=== PATIENT | female | born 1950 | race Caucasian/White ===

== ENCOUNTER 2017-10-25 06:47 | Day surgery (SDC) | payer MEDICARE ==
[~2017-10-25 06:47] MED LIST: Buffered Lidocaine 0.9% SYRIN* 5 ML/SYR SYRINGE INTRADERM ONE; Famotidine IV* 10 MG/ML 2 ML (20 mg) IV ONE
[2017-10-25] MEDS ORDERED: Famotidine IV* 10 MG/ML 2 ML (20 mg) ONE (06:58)
[2017-10-25] MEDS ORDERED: ceFAZolin 2 GM PREMIX (*) 2 GM/50 ML BAG IVPB ONE (06:58)
[2017-10-25] MEDS ORDERED: Bupivacaine 0.25% SDV* 30 ML ONE ×2 (07:07→07:17)
[2017-10-25] MEDS ORDERED: Propofol* 10 MG/ML 20 ML BTL IV PUSH ONE (07:15)
[2017-10-25] MEDS ORDERED: Lidocaine 2% PF * 5 ML VIAL ONE (07:15)
[2017-10-25] MEDS ORDERED: Insulin LISPRO* 1 UNITS UNIT SUBCUT ONE (07:29)
[2017-10-25] MEDS ORDERED: fentaNYL* 50 MCG/ML 2 ML VIAL (100 MCG VIAL) IV PRN (07:32)
[2017-10-25] MEDS ORDERED: HYDROcodone/ACETAMIN 5-325 MG* 1 TAB PO PRN (07:32)
[2017-10-25] MEDS ORDERED: oxyCODONE/Acetamin 5/325 MG* TAB PO PRN (07:32)
[2017-10-25] MEDS ORDERED: PROCHLORPERAZINE INJ 5 MG/ML 2 ML VIAL IV PRN (07:32)
[2017-10-25] MEDS ORDERED: Naloxone* 0.4 MG/ML 1 ML VIAL IV PRN (07:32)
[2017-10-25] MEDS ORDERED: fentaNYL* 50 MCG/ML 2 ML VIAL (100 MCG VIAL) ONE ×2 (07:35→08:12)
[2017-10-25] MEDS ORDERED: EPHEDrine (Pressors)* 50 MG/ML VIAL ONE (08:02)
[2017-10-25] MEDS ORDERED: Ondansetron INJ* 2 MG/ML VIAL ONE (08:18)
[2017-10-25] MEDS ORDERED: PROCHLORPERAZINE INJ 5 MG/ML 2 ML VIAL ONE (10:03)
[2017-10-25 10:24] VITALS: BP 155/52
--- NOTE | 2017-10-30 19:25 | OP ---
DATE OF OPERATION: 10/25/17 - [facility] DATE OF : 48 SURGEON: Fareed Aranda MD LABORATORY MECHANIC HELPER: PATTI Gonzalez. An criminal legal assistant was needed for the entirety of the procedure to aid in positioning of the arm and retraction. ANESTHESIOLOGIST: Katherine Rogers MD ANESTHESIA: General. PRE-OP DIAGNOSES: 1. Left carpal tunnel syndrome. 2. Left cubital tunnel syndrome. POST-OP DIAGNOSIS: PROCEDURE PERFORMED: 1. Revision left carpal tunnel release. 2. Left in situ cubital tunnel release. INDICATIONS: Magy has had progressive numbness and tingling in the hands. The carpal tunnel release was done in the late . Her symptoms have come back. Additionally, she is having a lot of problems with the ring and small fingers. The nerve was felt to partially subluxate preoperatively. ESTIMATED BLOOD LOSS: 5 mL. COMPLICATIONS: None. FINDINGS: As expected. DESCRIPTION OF PROCEDURE: Magy was seen in the preoperative holding area. The correct side, site, and the procedure were identified. We came back to the operating room, where the arm was prepped and draped in the usual fashion. Time - out was performed. I exsanguinated the arm with the Esmarch and the tourniquet was inflated to 250 mmHg. I then began by reopening her prior carpal tunnel incision, this was extended distally and then proximally across the wrist flexion crease via Vinicio type incision over the ulnar aspect of the joint. Dissection was carried down. The carpal tunnel was opened by releasing the transverse carpal ligament just off the radial aspect of the hook of the hamate and then proximally the fascia was released. Once the release was completed distally and proximally and there was absolutely no compression on the nerve, we irrigated out the wound and the skin was closed with the 4-0 nylon suture. I then came to the elbow and the arm was abducted and externally rotated, a curvilinear incision was made centered over the Gomes's ligament and extended proximally and distally in line with the ulnar nerve. Dissection was carried down, the medial antebrachial cutaneous nerve was identified and protected. The full thickness flaps were raised off the fascia. I began the decompression just proximal to the Gomes's ligament. This was then carried out proximally past the arcade of Kristine. I then came distally and released Gomes's ligament. I then released the superficial FCU fascia. I split the 2 ends of the FCU and released the subfascial layer. I went ahead and trimmed back the medial intermuscular septum. At this point, I performed a neurolysis just about the ulnar nerve at Gomes's ligament. The nerve was completely free and decompressed. I went ahead and flexed and extended the elbow. The nerve did not subluxate and was felt to be stable through a full motion arch. I therefore irrigated out the wound. The hemostasis was obtained with the Bovie. The subcutaneous tissue was reapproximated with 3-0 Vicryl, the skin was closed with 4-0 Monocryl and Steri-Strips. The area was infiltrated with 0.25% plain Marcaine. The wounds were dressed with Xeroform, 4x4's, sterile Webril and ABD at the elbow and an Brien bandage. Tourniquet was deflated and she was taken to the recovery room in stable condition. [id number]/CPS #: [id number] SRI
== END 2017-10-25 10:24 | disposition home or self-care (01) ==
LOC: OREAST 06:47
PROVIDERS: ATTEND Orthopaedic Surgery Hand Surgery
DX: G56.02 Carpal tunnel syndrome, left upper limb (principal); G56.22 Lesion of ulnar nerve, left upper limb; E11.9 Type 2 diabetes mellitus without complications; Z79.84 Long term (current) use of oral hypoglycemic drugs; I10 Essential (primary) hypertension; G62.9 Polyneuropathy, unspecified; I34.8 Other nonrheumatic mitral valve disorders; E78.5 Hyperlipidemia, unspecified
CPT/HCPCS: J0690; J0780; J2405; J2704; J3010